=== PATIENT | female | born 1975 | race American Indian/Alaskan Native ===

== ENCOUNTER 2020-08-30 10:44 | Emergency (ER) | payer SELFPAY ==
[2020-08-30 10:51] VITALS: BP 121/80
--- NOTE | 2020-08-30 11:03 | Emergency Department Report ---
Upper Extremity - HPI Chief Complaint: Extremity Injury, Upper Stated Complaint: LT SHOULDER PAIN Time Seen by Provider: 08/30/20 10:52 Other History: pt is a 44 yo female who presents to the ED with c/o left sided neck pain and left shoulder pain that began 4 days ago. she states that she had her nephew on her back one day and the pain began shortly after. she states she she reached in a different way to catch him down her back and felt a pulling sensation in her left side of her neck and left shoulder. she states the arm feels tingling. pt denies any fall, complete numbness, weakness, fever, no cough, CP, SOB, arm or leg swelling. PMHx none. no allergies to meds. LNMP: 08/24/2020. non smoker ED Review of Systems ROS: Stated complaint: LT SHOULDER PAIN Other details as noted in HPI Comment: All other systems reviewed and negative ED Past Medical Hx - Past Medical History Previous Medical History?: No - Surgical History Past Surgical History?: No - Social History Smoking Status: Never Smoker Substance Use Type: Alcohol - Medications Home Medications: Home Medications Medication Instructions Recorded Confirmed Last Taken Type Menthol/Camphor [Conklin [place] 1 applic TP BID #8 oint...g. 08/30/20 Unknown Rx Ointment] Naproxen [EC-Naprosyn] 500 mg PO BID PRN #14 tablet.dr 08/30/20 Unknown Rx Prednisone [predniSONE 10 mg 10 mg PO .TAPER #1 tab.ds.pk 08/30/20 Unknown Rx (6-Day Pack, 21 Tabs)] methOCARBAMOL [Robaxin TAB] 500 mg PO BID PRN #14 tab 08/30/20 Unknown Rx Upper Extremity Exam - Exam General: Vital signs noted. No distress. Alert and acting appropriately. Head and Torso: Yes Neck Tenderness (left sided C-spine paraspinal muscular ttp, no midline c-spine, t-spine or l-spine ttp, no step offs, no deformities), No HEENT Abnormality, No Chest/Lungs Abnormality, No Abdominal Tenderness Shoulder Exam: Yes Shoulder Tenderness (left sided trapezius ttp, no bony ttp of the left shoulder, FROM of the LUE, no sulcus sign, no skin changes, no increased warmth, neurovascularly intact), Yes Normal Range of Motion in Shoulder, No Shoulder Deformity, No AC Joint Tenderness Arm Exam: No Arm/Humerus Tenderness, No Arm Deformity Elbow: Yes Normal Range of Motion in Elbow, No Elbow Tenderness, No Elbow Deformity Forearm: No Forearm Tenderness, No Forearm Deformity, No Pain with Pronation, No Pain with Supination Wrist: Yes Normal ROM in Wrist, No Wrist Tenderness, No Wrist Deformity, No Snuffbox Tenderness, No Pain with Axial Thumb Compression Hand: Yes Normal ROM in Digit(s), No Hand Tenderness, No Hand Deformity, No Digit Tenderness, No Digit(s) Deformity, No Tendon Dysfunction CMS Exam: Yes Normal Distal Pulses, Yes Normal Capillary Refill, Yes Normal Distal Sensation, No Broken Skin ED Course Vital Signs 08/30/20 10:50 Temperature 98.0 F Pulse Rate 90 Respiratory 17 Rate Blood Pressure 121/80 O2 Sat by Pulse 99 Oximetry ED Medical Decision Making - Medical Decision Making pt is a 44 yo female who presents to the ED with c/o left sided neck pain and left shoulder pain that began 4 days ago. she states that she had her nephew on her back one day and the pain began shortly after. she states she she reached in a different way to catch him down her back and felt a pulling sensation in her left side of her neck and left shoulder. she states the arm feels tingling. pt denies any fall, complete numbness, weakness, fever, no cough, CP, SOB, arm or leg swelling. PMHx none. no allergies to meds. LNMP: 08/24/2020. non smoker. vitals are normal. on exam: left sided C-spine paraspinal muscular ttp, no midline c-spine, t-spine or l-spine ttp, no step offs, no deformities, left sided trapezius ttp, no bony ttp of the left shoulder, FROM of the LUE, no sulcus sign, no skin changes, no increased warmth, neurovascularly intact. Examination appears consistent with muscle strain and cervical radiculopathy. She has no midline tenderness, no step-offs, no deformities, no focal neuro deficits on exam. She has no bony tenderness of the shoulder, full range of motion, no deformities. She has no clinical signs of acute fracture or dislocation. Do not suspect traumatic injury. Patient be referred to orthopedi c doctor and primary care. Patient given prescription for Conklin balm, naproxen, prednisone, Robaxin. Advised patientPlease use medication as prescribed as needed. May use ice pack, heating pad, rest, Epsom salt bath. Follow-up with a primary care doctor. Follow-up with orthopedic doctor. Do not drive or operate machinery while using muscle relaxer Robaxin. Return to emergency room for any new or worsening symptoms. - Differential Diagnosis Strain, sprain, DDD, radiculopathy, bulging disc, tendinitis, arthritis Critical care attestation.: If time is entered above; I have spent that time in minutes in the direct care of this critically ill patient, excluding procedure time. ED Disposition Clinical Impression: Neck pain on left side Left shoulder pain Qualifiers: Chronicity: acute Qualified Code(s): M25.512 - Pain in left shoulder Disposition: DC- TO HOME OR SELFCARE Is pt being admited?: No Does the pt Need Aspirin: No Condition: Stable Instructions: Cervical Radiculopathy, Muscle Strain, [id number] Additional Instructions: Please use medication as prescribed as needed. May use ice pack, heating pad, rest, Epsom salt bath. Follow-up with a primary care doctor. Follow-up with orthopedic doctor. Do not drive or operate machinery while using muscle relaxer Robaxin. Return to emergency room for any new or worsening symptoms. Prescriptions: Naproxen [EC-Naprosyn] 500 mg PO BID PRN #14 tablet.dr PRN Reason: pain Prednisone [predniSONE 10 mg (6-Day Pack, 21 Tabs)] 10 mg PO .TAPER #1 tab.ds.pk methOCARBAMOL [Robaxin TAB] 500 mg PO BID PRN #14 tab PRN Reason: pain Menthol/Camphor [Conklin [place] Ointment] 1 applic TP BID #8 oint...g. Referrals: MOHIT DICK MD [Staff Physician] - 2-3 Days [facility] [Provider Group] - 2-3 Days VERNA WINTERS MD [Staff Physician] - 2-3 Days [facility] [Provider Group] - 2-3 Days Forms: Work/School Release Form(ED) Time of Disposition: 11:01 Print Language: CAMEROONIAN
== END 2020-08-30 11:43 | disposition home or self-care (01) ==
LOC: ED 10:44
DX: M54.2 Cervicalgia (principal); M25.512 Pain in left shoulder; Z79.899 Other long term (current) drug therapy
CPT/HCPCS: 99282